=== PATIENT | female | born 1970 | race Two or more races ===

== ENCOUNTER 2018-10-12 20:27 | Emergency (ER) | payer OTHER ==
[~2018-10-12] VITALS: Ht 162.6 cm; Wt 74.8 kg
[2018-10-12 21:19] LABS: Basophils # (auto) 0 uL; Basophils % (auto) 0.3 % (0.0-2.0); Eosinophils # (auto) 0 uL; Eosinophils % (auto) 0.2 % (0.0-7.0); Hematocrit 39.9 % (36.0-46.0); Hemoglobin 13.4 g/dL (12.2-16.2); Lymphocytes # (auto) 0.6 uL; Lymphocytes % (auto) 6.9 % (10.0-50.0); Mean Corpuscular Hemoglobin 28.6 pg (28.0-32.0); Mean Corpuscular Hgb Conc. 33.5 g/dL (32.0-36.0); Mean Corpuscular Volume 85.6 fL (80.0-100.0); Monocytes # (auto) 0.3 uL; Monocytes % (auto) 4.2 % (0.0-12.0); Neutrophils # (auto) 7.1 uL; Neutrophils % (auto) 88.4 % (37.0-80.0); Platelet Count (auto) 252 10^3/uL (140-450); Red Blood Cells 4.67 10^6/uL (4.0-5.20); White Blood Cell 8.1 10^3/uL (4.4-10.8)
[2018-10-12 21:20] LABS: INR 0.93 (0.9-1.15); Partial Thromboplastin Time 23.6 sec (23.78-33.04)
[2018-10-12 21:21] LABS: Albumin 3.5 g/dL (3.4-5.0); Anion Gap 7 (5-15); Blood Urea Nitrogen 11 mg/dL (7-18); Calcium 8.7 mg/dL (8.5-10.1); Carbon Dioxide 26 mmol/L (21-32); Chloride 104 mmol/L (98-107); Glucose 219 mg/dL (74-106); Potassium 3.9 mmol/L (3.5-5.1); Sodium 137 mmol/L (136-145)
[2018-10-12 21:23] LABS: Alanine Aminotransferase 17 U/L (13-56); Aspartate Aminotransferase 18 U/L (15-37); BUN/Creatinine Ratio 13.4; GFR African American 95 mL/min; GFR Non-African American 79 mL/min
[2018-10-12 21:28] LABS: Alkaline Phosphatase 86 U/L (45-117); Bilirubin, Total 0.2 mg/dL (0.2-1.0); Total Protein 7.4 g/dL (6.4-8.2)
[2018-10-12 23:50] LABS: Urine Bacteria FEW /hpf (None Seen); Urine Blood Negative /uL (Negative); Urine Specific Gravity 1.026 (1.001-1.035); Urine WBC 1 /hpf (0 - 5)
[2018-10-13] MEDS ORDERED: IOHEXOL 350 MG/ML 100ML IJ ONE (03:42)
[2018-10-13 05:05] VITALS: BP 98/51
== END 2018-10-13 06:16 | disposition home or self-care (01) ==
LOC: EDBD 20:27 → EDUNIT# 20:27 → ER 20:32
DX: J01.00 Acute maxillary sinusitis, unspecified (principal); J02.9 Acute pharyngitis, unspecified; K21.9 Gastro-esophageal reflux disease without esophagitis; R42 Dizziness and giddiness
CPT/HCPCS: 36415; 71045; 71275; 80053; 81001; 81025; 84484; 85025; 85379; 85610; 85730; 94761; 99284; Q9967